=== PATIENT | female | born 1925 | race Caucasian/White ===

== ENCOUNTER 2017-05-01 20:06 | Inpatient (IN) | payer MEDICARE, OTHER ==
[~2017-05-01] VITALS: Ht 170.2 cm; Wt 72.3 kg
[~2017-05-01 20:06] MED LIST: ALLO100 PO; ASPIRIN PO; BENZ100A PO; CALC.25 PO; COLCHICINE0.6 MG PO; COLCRYS0.6 MG PO; CYAN1000 PO; Calcium With M1 EAC2 PO; Coumadin2.5 MG PO; DULERA 100 MCG/13 GM INH; FOLI1 PO; FURO40 PO; Flonase 0.05% N16 GM; GLUCOSAMINE S1000 M1 PO; GUAIFENESIN ER600 MG PO; HYDCHL25 PO; HYDR1TAB94 PO; LANOXIN125 MCG PO; LEVO750 PO; Levaquin750 MG PO; METO50ER PO; METTREX2.5 PO; Multivitamin1 EAC1 PO; OMEP20ER PO; ONDA4ODT SL; POTA10T PO; PRED20 PO; Prilosec Otc20 MG PO; RANI150 PO; SIMV10 PO; Tessalon200 MG PO; Ultram50 MG PO; WARF2.5 PO; WARF5 PO; XARELTO15 MG PO; Zocor20 MG PO; Zofran Odt4 MG SL
[2017-05-01] MEDS ORDERED: PANT40 PO (20:30)
[2017-05-01] MEDS ORDERED: Central-Vite1 EAC3 PO (20:30)
[2017-05-01 20:39] LABS: Hematocrit 25.2 % (33.0-51.0); Hemoglobin 8.1 g/dL (11.5-16.0); Mean Corpuscular HGB 30.1 pg (26.0-34.0); Mean Corpuscular HGB Conc 32.1 g/dL (31.5-36.5); Mean Corpuscular Volume 94 fL (80-100); Mean Platelet Volume 9.1 fL (9.1-12.4); NRBC ABSOLUTE 0.03 K/mm3 (0.00-0.02); NRBC Auto 0.3 /100 WBC (0.0-0.2); Platelet Count 168 K/mm3 (150-400); RDW Coefficient Variation 21.9 % (11.7-14.2); RDW Standard Deviation 72.7 fL (35.1-46.3); Red Blood Cell Count 2.69 M/mm3 (3.80-5.20); White Blood Cell Count 10.25 K/mm3 (4.00-11.30)
[2017-05-01 20:48] LABS: Source, Urine Clean Catch
[2017-05-01 20:50] LABS: Bilirubin, Urine Neg (Neg); Blood, Urine 1+ (Neg); Glucose Qualitative, Urine Neg (Neg); Ketones, Urine Neg (Neg); Leukocyte Esterase, Urine 2+ (Neg); Nitrite, Urine Neg (Neg); Protein, Urine 2+ (Neg); Urobilinogen, Urine NORM (Normal)
[2017-05-01 21:01] LABS: Amorphous Light (0-Heavy); Appearance, Urine Hazy (Clear); Bacteria Few /hpf; Color, Urine Yellow (P-Yellow); Red Blood Cells, Urine Rare /hpf (0-2); Squamous Epithelial Cells Rare /hpf (Few); White Blood Cells, Urine 25-50 /hpf (0-5)
[2017-05-01 21:02] LABS: Granular Casts 0-2 /lpf (0)
[2017-05-01 21:04] LABS: Albumin, Blood 2.7 g/dL (3.4-5.0); Albumin/Globulin Ratio 0.8 (0.8-1.8); Bilirubin, Total 0.6 mg/dL (0.1-1.0); Bun/Creatinine Ratio 13.8 (12.0-20.0); Calcium, Blood 8.1 mg/dL (8.5-10.1); Creatinine, Blood 1.6 mg/dL (0.40-1.00); Globulin, Blood 3.4 g/dL (2.2-4.0); Potassium, Blood 4.3 mmol/L (3.5-5.5); Total Protein, Blood 6.1 g/dL (6.4-8.2); Troponin I 0.059 ng/mL (0.000-0.040)
[2017-05-01 21:07] LABS: BAND PERCENT MAN 10 % (0-8); BASOPHILS PERCENT MAN 0 % (0-2); EOSINOPHILS PERCENT MAN 1 % (0-6); LYMPHOCYTES ABSOLUTE MAN 0.71 K/mm3 (0.84-5.20); LYMPHOCYTES PERCENT MAN 7 % (21-46); MONOCYTES PERCENT MAN 2 % (4-13); NEUTROPHILS ABSOLUTE MAN 9.22 K/mm3 (1.96-9.15); SEG NEUTROPHILS PERCENT MAN 80 % (41-73); TOTAL CELLS COUNTED 100
[2017-05-02 02:28] LABS: BASOPHILS ABSOLUTE AUTO 0.01 K/mm3 (0.00-0.23); BASOPHILS PERCENT AUTO 0 % (0-2); EOSINOPHILS ABSOLUTE AUTO 0.03 K/mm3 (0.00-0.68); EOSINOPHILS PERCENT AUTO 0 % (0-6); Hematocrit 23.6 % (33.0-51.0); Hemoglobin 7.4 g/dL (11.5-16.0); IMMATURE GRAN ABSOLUTE AUTO 0.02 K/mm3 (0.00-0.10); IMMATURE GRAN PERCENT AUTO 0 % (0-1); LYMPHOCYTES PERCENT AUTO 10 % (21-46); MONOCYTES ABSOLUTE AUTO 0.42 K/mm3 (0.16-1.47); MONOCYTES PERCENT AUTO 5 % (4-13); Mean Corpuscular HGB 30.3 pg (26.0-34.0); Mean Corpuscular HGB Conc 31.4 g/dL (31.5-36.5); Mean Platelet Volume 9.2 fL (9.1-12.4); NEUTROPHILS ABSOLUTE AUTO 6.84 K/mm3 (1.96-9.15); NEUTROPHILS PERCENT AUTO 84 % (41-73); NRBC ABSOLUTE 0.02 K/mm3 (0.00-0.02); NRBC Auto 0.3 /100 WBC (0.0-0.2); Platelet Count 147 K/mm3 (150-400); RDW Coefficient Variation 22.1 % (11.7-14.2); RDW Standard Deviation 76.1 fL (35.1-46.3); Red Blood Cell Count 2.44 M/mm3 (3.80-5.20); White Blood Cell Count 8.12 K/mm3 (4.00-11.30)
[2017-05-02 02:29] LABS: Mean Corpuscular Volume 97 fL (80-100)
[2017-05-02 03:04] LABS: Calcium, Blood 7.6 mg/dL (8.5-10.1); Creatinine, Blood 1.57 mg/dL (0.40-1.00); Potassium, Blood 4.2 mmol/L (3.5-5.5); Troponin I 0.059 ng/mL (0.000-0.040)
[2017-05-03] MEDS ORDERED: Bactrim Ds Tab1 EACH PO (11:24)
[2017-10-01] MEDS ORDERED: Zofran Odt4 MG PO (22:03)
[2018-02-02] MEDS ORDERED: Ferrous Sulfat325 M2 PO (22:26)
[2018-02-02] MEDS ORDERED: FOLI1 PO (22:27)
[2018-02-02] MEDS ORDERED: GLUC500 PO (22:27)
[2018-02-02] MEDS ORDERED: Megace Es625 MG/5 M PO (22:28)
[2018-02-02] MEDS ORDERED: POTA8 PO (22:29)
[2018-02-02] MEDS ORDERED: ELIQUIS2.5 MG PO (22:30)
[2018-02-02] MEDS ORDERED: Fruity C250 MG PO (22:31)
[2018-02-02] MEDS ORDERED: TRAZ50 PO (22:32)
[2018-02-02] MEDS ORDERED: SIMV10 PO (22:32)
[2018-02-02] MEDS ORDERED: Flonase 0.05% N16 GM (22:33)
== END 2017-05-03 11:51 | disposition home or self-care (01) | DRG 871 ==
LOC: ER 20:06 → MEDS 23:09
PROVIDERS: Family Medicine; Physician Assistant
DX: A41.9 Sepsis, unspecified organism (principal); G93.41 Metabolic encephalopathy; I48.2 Chronic atrial fibrillation; D63.1 Anemia in chronic kidney disease; N39.0 Urinary tract infection, site not specified; I12.9 Hypertensive chronic kidney disease with stage 1 through stage 4 chronic kidney disease, or unspecified chronic kidney disease; N18.3 Chronic kidney disease, stage 3 (moderate); M10.9 Gout, unspecified; Z88.6 Allergy status to analgesic agent; Z88.5 Allergy status to narcotic agent; Z88.0 Allergy status to penicillin; Z95.0 Presence of cardiac pacemaker; Z87.891 Personal history of nicotine dependence
CPT/HCPCS: 36415; 51701; 70450; 71020; 80048; 80053; 81001; 83605; 84484; 85025; 87040; 87086; 93005; 93010; 96365; 97110; 97116; 97161; 97166; 97530; 99285; G8978; G8979; G8987; G8988; G8989; J0696; J7030

== ENCOUNTER 2017-07-26 03:29 | Emergency (ER) | payer MEDICARE, OTHER ==
[~2017-07-26] VITALS: Ht 177.8 cm; Wt 68.0 kg
[~2017-07-26 03:29] MED LIST changes: +Bactrim Ds Tab1 EACH PO; +Central-Vite1 EAC3 PO; +PANT40 PO
[2017-07-26 03:49] LABS: Hematocrit 27.9 % (33.0-51.0); Hemoglobin 8.5 g/dL (11.5-16.0); Mean Corpuscular HGB 30.5 pg (26.0-34.0); Mean Corpuscular HGB Conc 30.5 g/dL (31.5-36.5); Mean Corpuscular Volume 100 fL (80-100); Mean Platelet Volume 10.8 fL (9.1-12.4); NRBC ABSOLUTE 0.05 K/mm3 (0.00-0.02); NRBC Auto 0.4 /100 WBC (0.0-0.2); Platelet Count 193 K/mm3 (150-400); RDW Coefficient Variation 23.3 % (11.7-14.2); RDW Standard Deviation 86.6 fL (35.1-46.3); Red Blood Cell Count 2.79 M/mm3 (3.80-5.20); White Blood Cell Count 13.41 K/mm3 (4.00-11.30)
[2017-07-26] MEDS ORDERED: GLUC500 PO (04:01)
[2017-07-26] MEDS ORDERED: Calcium Magnes1 EACH PO (04:01)
[2017-07-26] MEDS ORDERED: Central-Vite1 EAC3 PO (04:01)
[2017-07-26] MEDS ORDERED: Omeprazole20 M1 PO (04:02)
[2017-07-26] MEDS ORDERED: CYAN500 PO (04:02)
[2017-07-26] MEDS ORDERED: POTCHL10ER PO (04:03)
[2017-07-26] MEDS ORDERED: FURO40 PO (04:03)
[2017-07-26 04:04] LABS: Alanine Aminotransfer (ALT/SGP 15 U/L (12-78); Albumin, Blood 2.7 g/dL (3.4-5.0); Albumin/Globulin Ratio 0.7 (0.8-1.8); Alk Phos 77 U/L (50-136); Anion Gap 12 mmol/L (6-16); Aspartate Aminotrans (AST/SGOT 18 U/L (12-37); Bilirubin, Total 0.6 mg/dL (0.1-1.0); Blood Urea Nitrogen 22 mg/dL (8-24); Bun/Creatinine Ratio 15.7 (12.0-20.0); CO2, Blood 21 mmol/L (21-32); Calcium, Blood 8.6 mg/dL (8.5-10.1); Chloride, Blood 102 mmol/L (98-108); Globulin, Blood 3.8 g/dL (2.2-4.0); Glomerular Filtration Rate 38 (60-); Glucose, Blood 114 mg/dL (70-99); Potassium, Blood 4.5 mmol/L (3.5-5.5); Sodium, Blood 135 mmol/L (136-145); Total Protein, Blood 6.5 g/dL (6.4-8.2)
[2017-07-26] MEDS ORDERED: METTREX2.5 PO (04:04)
[2017-07-26] MEDS ORDERED: DIGOX125 MCG PO (04:05)
[2017-07-26] MEDS ORDERED: CALC.25 PO (04:05)
[2017-07-26] MEDS ORDERED: METO50ER PO (04:05)
[2017-07-26] MEDS ORDERED: SIMV10 PO (04:05)
[2017-07-26] MEDS ORDERED: FOLI1 PO (04:06)
[2017-07-26] MEDS ORDERED: ALLO100 PO (04:06)
[2017-07-26] MEDS ORDERED: PANT40 PO (04:06)
[2017-07-26] MEDS ORDERED: XARELTO15 MG PO (04:06)
[2017-07-26 04:25] LABS: Source, Urine Clean Catch
[2017-07-26 04:29] LABS: Bilirubin, Urine Neg (Neg); Blood, Urine Neg (Neg); Glucose Qualitative, Urine Neg (Neg); Ketones, Urine Neg (Neg); Leukocyte Esterase, Urine Neg (Neg); Nitrite, Urine Neg (Neg); Protein, Urine 2+ (Neg); Urobilinogen, Urine NORM (Normal)
[2017-07-26 04:36] LABS: Digoxin (Lanoxin) 1.37 ug/mL (0.80-2.00)
[2017-07-26 04:41] LABS: Appearance, Urine Clear (Clear); Color, Urine Yellow (P-Yellow)
[2017-07-26 04:44] LABS: Bacteria Not Seen /hpf; Red Blood Cells, Urine Not Seen /hpf (0-2); Squamous Epithelial Cells Few /hpf (Few); White Blood Cells, Urine Rare /hpf (0-5)
[2017-07-26 04:48] LABS: BAND PERCENT MAN 11 % (0-8); BASOPHILS PERCENT MAN 0 % (0-2); EOSINOPHILS PERCENT MAN 0 % (0-6); LYMPHOCYTES ABSOLUTE MAN 0.13 K/mm3 (0.84-5.20); LYMPHOCYTES PERCENT MAN 1 % (21-46); MONOCYTES PERCENT MAN 6 % (4-13); NEUTROPHILS ABSOLUTE MAN 12.47 K/mm3 (1.96-9.15); SEG NEUTROPHILS PERCENT MAN 82 % (41-73); TOTAL CELLS COUNTED 100
[2017-07-26 05:51] LABS: Troponin I 0.052 ng/mL (0.000-0.040)
[2017-07-27] MEDS ORDERED: TRAZ50 PO (21:05)
[2017-07-27] MEDS ORDERED: ELIQUIS2.5 MG PO ×2 (21:06)
== END 2017-07-26 06:02 | disposition home or self-care (01) ==
LOC: ER 03:29
PROVIDERS: Emergency Medicine
DX: R53.1 Weakness (principal); I10 Essential (primary) hypertension; Z95.0 Presence of cardiac pacemaker; Z87.891 Personal history of nicotine dependence; Z79.899 Other long term (current) drug therapy; W18.30XA Fall on same level, unspecified, initial encounter
CPT/HCPCS: 36415; 80053; 80162; 81001; 83690; 84484; 85025; 93005; 93010; 99284; P9612

== ENCOUNTER 2017-07-27 18:03 | Inpatient (IN) | payer MEDICARE, OTHER ==
[~2017-07-27] VITALS: Ht 177.8 cm; Wt 69.8 kg
[~2017-07-27 18:03] MED LIST changes: +CYAN500 PO; +Calcium Magnes1 EACH PO; +DIGOX125 MCG PO; +GLUC500 PO; +Omeprazole20 M1 PO; +POTCHL10ER PO
[2017-07-27 19:01] LABS: BASOPHILS ABSOLUTE AUTO 0.02 K/mm3 (0.00-0.23); BASOPHILS PERCENT AUTO 0 % (0-2); EOSINOPHILS PERCENT AUTO 1 % (0-6); Hematocrit 25.9 % (33.0-51.0); IMMATURE GRAN PERCENT AUTO 1 % (0-1); LYMPHOCYTES ABSOLUTE AUTO 0.44 K/mm3 (0.84-5.20); LYMPHOCYTES PERCENT AUTO 2 % (21-46); MONOCYTES ABSOLUTE AUTO 1.96 K/mm3 (0.16-1.47); MONOCYTES PERCENT AUTO 9 % (4-13); Mean Corpuscular HGB 30.5 pg (26.0-34.0); Mean Corpuscular HGB Conc 30.9 g/dL (31.5-36.5); Mean Corpuscular Volume 99 fL (80-100); Mean Platelet Volume 11.7 fL (9.1-12.4); NEUTROPHILS ABSOLUTE AUTO 18.14 K/mm3 (1.96-9.15); NEUTROPHILS PERCENT AUTO 87 % (41-73); NRBC ABSOLUTE 0.03 K/mm3 (0.00-0.02); NRBC Auto 0.1 /100 WBC (0.0-0.2); Platelet Count 160 K/mm3 (150-400); RDW Coefficient Variation 22.9 % (11.7-14.2); RDW Standard Deviation 82.4 fL (35.1-46.3); Red Blood Cell Count 2.62 M/mm3 (3.80-5.20); White Blood Cell Count 20.86 K/mm3 (4.00-11.30)
[2017-07-27 19:16] LABS: Source, Urine Catheter
[2017-07-27 19:23] LABS: Albumin, Blood 2.6 g/dL (3.4-5.0); Albumin/Globulin Ratio 0.8 (0.8-1.8); Bun/Creatinine Ratio 17.6 (12.0-20.0); Calcium, Blood 8.5 mg/dL (8.5-10.1); Creatinine, Blood 1.65 mg/dL (0.40-1.00); Globulin, Blood 3.4 g/dL (2.2-4.0); Potassium, Blood 4.3 mmol/L (3.5-5.5)
[2017-07-27 19:41] LABS: Appearance, Urine Clear (Clear); Bilirubin, Urine Neg (Neg); Blood, Urine Neg (Neg); Color, Urine Yellow (P-Yellow); Glucose Qualitative, Urine Neg (Neg); Ketones, Urine Neg (Neg); Leukocyte Esterase, Urine Neg (Neg); Nitrite, Urine Neg (Neg); Protein, Urine 1+ (Neg); Urobilinogen, Urine NORM (Normal)
[2017-07-27 19:54] LABS: BASOPHILS PERCENT MAN 0 % (0-2); EOSINOPHILS PERCENT MAN 1 % (0-6); LYMPHOCYTES ABSOLUTE MAN 3.33 K/mm3 (0.84-5.20); LYMPHOCYTES PERCENT MAN 16 % (21-46); MONOCYTES ABSOLUTE MAN 0.83 K/mm3 (0.16-1.47); MONOCYTES PERCENT MAN 4 % (4-13); NEUTROPHILS ABSOLUTE MAN 16.47 K/mm3 (1.96-9.15); SEG NEUTROPHILS PERCENT MAN 79 % (41-73); TOTAL CELLS COUNTED 100
[2017-07-27 20:04] LABS: Influenza A Negative (NEGATIVE); Influenza B Negative (NEGATIVE)
[2017-07-27] MEDS ORDERED: TRAZ50 PO (21:05)
[2017-07-27] MEDS ORDERED: ELIQUIS2.5 MG PO ×2 (21:06)
[2017-07-27 21:50] LABS: Digoxin (Lanoxin) 1.44 ug/mL (0.80-2.00)
[2017-07-28 05:35] LABS: Hematocrit 24.6 % (33.0-51.0); Hemoglobin 7.5 g/dL (11.5-16.0); Mean Corpuscular HGB 30.7 pg (26.0-34.0); Mean Corpuscular HGB Conc 30.5 g/dL (31.5-36.5); Mean Corpuscular Volume 101 fL (80-100); Mean Platelet Volume 12.4 fL (9.1-12.4); Platelet Count 153 K/mm3 (150-400); RDW Coefficient Variation 22.8 % (11.7-14.2); Red Blood Cell Count 2.44 M/mm3 (3.80-5.20); White Blood Cell Count 20.52 K/mm3 (4.00-11.30)
[2017-07-28 05:52] LABS: Albumin, Blood 2.2 g/dL (3.4-5.0); Albumin/Globulin Ratio 0.6 (0.8-1.8); Bilirubin, Total 0.4 mg/dL (0.1-1.0); Bun/Creatinine Ratio 18.4 (12.0-20.0); Calcium, Blood 7.6 mg/dL (8.5-10.1); Creatinine, Blood 1.58 mg/dL (0.40-1.00); Globulin, Blood 3.4 g/dL (2.2-4.0); Potassium, Blood 4.5 mmol/L (3.5-5.5); Total Protein, Blood 5.6 g/dL (6.4-8.2)
[2017-07-28 06:00] LABS: BAND PERCENT MAN 33 % (0-8); BASOPHILS PERCENT MAN 0 % (0-2); EOSINOPHILS PERCENT MAN 0 % (0-6); METAMYELOCYTE PERCENT MAN 1 % (0-0); MONOCYTES PERCENT MAN 1 % (4-13); SEG NEUTROPHILS PERCENT MAN 65 % (41-73); TOTAL CELLS COUNTED 100
[2017-07-28] MEDS ORDERED: Simvastatin20 MG PO (07:23)
[2017-07-28 09:33] LABS: Percent Saturation 2.7 % (15.0-50.0)
[2017-07-28] MEDS ORDERED: TYLENOL PM PO (11:00)
[2017-07-28 14:07] LABS: Hematocrit 23.9 % (33.0-51.0); Hemoglobin 7.3 g/dL (11.5-16.0)
[2017-07-29 05:04] LABS: Hematocrit 27.5 % (33.0-51.0); Hemoglobin 8.8 g/dL (11.5-16.0); Mean Corpuscular HGB 29.8 pg (26.0-34.0); Mean Platelet Volume 11.5 fL (9.1-12.4); Platelet Count 204 K/mm3 (150-400); RDW Coefficient Variation 21.8 % (11.7-14.2); RDW Standard Deviation 70.2 fL (35.1-46.3); Red Blood Cell Count 2.95 M/mm3 (3.80-5.20); White Blood Cell Count 20.24 K/mm3 (4.00-11.30)
[2017-07-29 05:22] LABS: Mean Corpuscular Volume 93 fL (80-100)
[2017-07-29 05:30] LABS: Albumin, Blood 2.1 g/dL (3.4-5.0); Anion Gap 9 mmol/L (6-16); Blood Urea Nitrogen 32 mg/dL (8-24); Bun/Creatinine Ratio 21.2 (12.0-20.0); CO2, Blood 21 mmol/L (21-32); Calcium, Blood 7.7 mg/dL (8.5-10.1); Chloride, Blood 105 mmol/L (98-108); Creatinine, Blood 1.51 mg/dL (0.40-1.00); Glomerular Filtration Rate 34 (60-); Glucose, Blood 98 mg/dL (70-99); Phosphorus, Blood 2.9 mg/dL (2.5-4.9); Potassium, Blood 4.3 mmol/L (3.5-5.5); Sodium, Blood 135 mmol/L (136-145)
[2017-07-29 05:32] LABS: BAND PERCENT MAN 9 % (0-8); BASOPHILS PERCENT MAN 0 % (0-2); EOSINOPHILS PERCENT MAN 0 % (0-6); LYMPHOCYTES PERCENT MAN 4 % (21-46); MONOCYTES PERCENT MAN 0 % (4-13); NEUTROPHILS ABSOLUTE MAN 19.43 K/mm3 (1.96-9.15); SEG NEUTROPHILS PERCENT MAN 87 % (41-73); TOTAL CELLS COUNTED 100
[2017-07-29 13:48] LABS: Stool Occult Blood Guaiac 1 Neg (Neg)
[2017-07-30 05:19] LABS: BASOPHILS ABSOLUTE AUTO 0.03 K/mm3 (0.00-0.23); BASOPHILS PERCENT AUTO 0 % (0-2); EOSINOPHILS ABSOLUTE AUTO 0.14 K/mm3 (0.00-0.68); EOSINOPHILS PERCENT AUTO 1 % (0-6); Hematocrit 26.4 % (33.0-51.0); Hemoglobin 8.2 g/dL (11.5-16.0); Mean Corpuscular HGB 29.4 pg (26.0-34.0); Mean Corpuscular HGB Conc 31.1 g/dL (31.5-36.5); Mean Corpuscular Volume 95 fL (80-100); Mean Platelet Volume 10.9 fL (9.1-12.4); Platelet Count 202 K/mm3 (150-400); RDW Coefficient Variation 21.6 % (11.7-14.2); RDW Standard Deviation 73.1 fL (35.1-46.3); Red Blood Cell Count 2.79 M/mm3 (3.80-5.20); White Blood Cell Count 15.77 K/mm3 (4.00-11.30)
[2017-07-30 05:25] LABS: IMMATURE GRAN ABSOLUTE AUTO 0.27 K/mm3 (0.00-0.10); IMMATURE GRAN PERCENT AUTO 2 % (0-1); LYMPHOCYTES ABSOLUTE AUTO 0.33 K/mm3 (0.84-5.20); LYMPHOCYTES PERCENT AUTO 2 % (21-46); MONOCYTES ABSOLUTE AUTO 0.11 K/mm3 (0.16-1.47); MONOCYTES PERCENT AUTO 1 % (4-13); NEUTROPHILS ABSOLUTE AUTO 14.89 K/mm3 (1.96-9.15); NEUTROPHILS PERCENT AUTO 94 % (41-73)
[2017-07-30 06:08] LABS: Albumin, Blood 1.9 g/dL (3.4-5.0); Anion Gap 6 mmol/L (6-16); Blood Urea Nitrogen 29 mg/dL (8-24); Bun/Creatinine Ratio 21.6 (12.0-20.0); CO2, Blood 23 mmol/L (21-32); Calcium, Blood 7.5 mg/dL (8.5-10.1); Chloride, Blood 106 mmol/L (98-108); Creatinine, Blood 1.34 mg/dL (0.40-1.00); Glomerular Filtration Rate 40 (60-); Glucose, Blood 100 mg/dL (70-99); Phosphorus, Blood 1.6 mg/dL (2.5-4.9); Potassium, Blood 4.4 mmol/L (3.5-5.5); Sodium, Blood 135 mmol/L (136-145)
[2017-07-31 05:18] LABS: BASOPHILS ABSOLUTE AUTO 0.02 K/mm3 (0.00-0.23); BASOPHILS PERCENT AUTO 0 % (0-2); EOSINOPHILS ABSOLUTE AUTO 0.19 K/mm3 (0.00-0.68); EOSINOPHILS PERCENT AUTO 2 % (0-6); Hematocrit 28.2 % (33.0-51.0); IMMATURE GRAN ABSOLUTE AUTO 0.17 K/mm3 (0.00-0.10); IMMATURE GRAN PERCENT AUTO 2 % (0-1); LYMPHOCYTES ABSOLUTE AUTO 0.34 K/mm3 (0.84-5.20); LYMPHOCYTES PERCENT AUTO 4 % (21-46); MONOCYTES ABSOLUTE AUTO 0.26 K/mm3 (0.16-1.47); MONOCYTES PERCENT AUTO 3 % (4-13); Mean Corpuscular HGB 29.9 pg (26.0-34.0); Mean Corpuscular HGB Conc 31.9 g/dL (31.5-36.5); Mean Corpuscular Volume 94 fL (80-100); Mean Platelet Volume 10.4 fL (9.1-12.4); NEUTROPHILS PERCENT AUTO 88 % (41-73); Platelet Count 220 K/mm3 (150-400); RDW Coefficient Variation 21.5 % (11.7-14.2); Red Blood Cell Count 3.01 M/mm3 (3.80-5.20); White Blood Cell Count 8.28 K/mm3 (4.00-11.30)
[2017-07-31 06:07] LABS: Anion Gap 10 mmol/L (6-16); Blood Urea Nitrogen 28 mg/dL (8-24); Bun/Creatinine Ratio 22.2 (12.0-20.0); CO2, Blood 21 mmol/L (21-32); Chloride, Blood 104 mmol/L (98-108); Creatinine, Blood 1.26 mg/dL (0.40-1.00); Digoxin (Lanoxin) 1.23 ug/mL (0.80-2.00); Glomerular Filtration Rate 42 (60-); Glucose, Blood 110 mg/dL (70-99); Potassium, Blood 3.9 mmol/L (3.5-5.5); Sodium, Blood 135 mmol/L (136-145); Thyroxine (T4) 8.5 ug/dL (4.8-13.9); Triiodothyronine, Free 1.24 pg/mL (2.18-3.98)
[2017-08-02] MEDS ORDERED: CLIN300 PO (11:05)
[2017-08-02] MEDS ORDERED: DOCU100 PO (11:06)
[2017-08-02] MEDS ORDERED: CEFP200 PO (11:06)
[2017-08-02] MEDS ORDERED: LIOT5 PO (11:07)
[2017-08-02] MEDS ORDERED: SENN187 PO (11:08)
[2017-08-02] MEDS ORDERED: MIRT15 PO (11:08)
[2017-08-02] MEDS ORDERED: SACC250C PO (11:09)
[2017-10-01] MEDS ORDERED: Zofran Odt4 MG PO (22:03)
[2018-02-02] MEDS ORDERED: Ferrous Sulfat325 M2 PO (22:26)
[2018-02-02] MEDS ORDERED: GLUC500 PO (22:27)
[2018-02-02] MEDS ORDERED: FOLI1 PO (22:27)
[2018-02-02] MEDS ORDERED: Megace Es625 MG/5 M PO (22:28)
[2018-02-02] MEDS ORDERED: POTA8 PO (22:29)
[2018-02-02] MEDS ORDERED: ELIQUIS2.5 MG PO (22:30)
[2018-02-02] MEDS ORDERED: Fruity C250 MG PO (22:31)
[2018-02-02] MEDS ORDERED: SIMV10 PO (22:32)
[2018-02-02] MEDS ORDERED: TRAZ50 PO (22:32)
[2018-02-02] MEDS ORDERED: Flonase 0.05% N16 GM (22:33)
== END 2017-08-02 13:47 | disposition home or self-care (01) | DRG 871 ==
LOC: ER 18:03 → MEDS 21:08 → ENPENDDIS 08-02 09:29 → MEDS 08-02 13:47
PROVIDERS: Emergency Medicine; Family Medicine; Internal Medicine
DX: A41.9 Sepsis, unspecified organism (principal); J18.9 Pneumonia, unspecified organism; J96.01 Acute respiratory failure with hypoxia; N17.9 Acute kidney failure, unspecified; E44.0 Moderate protein-calorie malnutrition; G92 Toxic encephalopathy; I48.2 Chronic atrial fibrillation; D63.1 Anemia in chronic kidney disease; E87.1 Hypo-osmolality and hyponatremia; M06.9 Rheumatoid arthritis, unspecified; D50.9 Iron deficiency anemia, unspecified; N18.3 Chronic kidney disease, stage 3 (moderate); R65.20 Severe sepsis without septic shock; Z66 Do not resuscitate; E03.9 Hypothyroidism, unspecified; E78.5 Hyperlipidemia, unspecified; M10.9 Gout, unspecified; I12.9 Hypertensive chronic kidney disease with stage 1 through stage 4 chronic kidney disease, or unspecified chronic kidney disease; E83.39 Other disorders of phosphorus metabolism; K21.9 Gastro-esophageal reflux disease without esophagitis; Z95.0 Presence of cardiac pacemaker; Z87.891 Personal history of nicotine dependence; Z86.718 Personal history of other venous thrombosis and embolism; Z79.01 Long term (current) use of anticoagulants; Z79.818 Long term (current) use of other agents affecting estrogen receptors and estrogen levels; Z79.899 Other long term (current) drug therapy
CPT/HCPCS: 36415; 36430; 51701; 71046; 80048; 80053; 80069; 80162; 81001; 82270; 82607; 82728; 82746; 83540; 83550; 83605; 83690; 84436; 84443; 84481; 84484; 85014; 85018; 85025; 86850; 86900; 86901; 86923; 87040; 87804; 92610; 93005; 93010; 94640; 94760; 96361; 96365; 96367; 97161; 97166; 97530; 97535; 99284; 99285; C9113; G8978; G8979; G8987; G8988; G8996; G8997; G8998; J0456; J0696; J1650; J1940; J1956; J2405; J2916; J3010; J7030; J7050; P9016; P9612